=== PATIENT | male | born 1980 | race Caucasian/White ===

== ENCOUNTER 2017-08-16 02:03 | Emergency (ER) | payer SELFPAY ==
[2017-08-16] MEDS ORDERED: PREDNISONE 20 MG TABLET PO ONE (04:00)
--- NOTE | 2017-08-16 04:04 | ER Document Report ---
ED General - General Chief Complaint: Decreased Appetite Stated Complaint: DIZZINESS Time Seen by Provider: 08/16/17 03:46 Notes: Patient is a 29-year-old male that comes emergency department for chief complaint of being sick for 2 weeks with nonstop cough, he states that occasionally when he stands up he feels lightheaded and like he can walk a straight line, he states that occasionally coughs so hard he almost vomits. He reports mild sore throat. He is unsure of fever, states he has been taking a lot of NyQuil. No daily medications, never smoked, no medical history reported. He denies any current symptoms except for persistent cough. TRAVEL OUTSIDE OF THE [place] IN LAST 30 DAYS: No - Related Data Allergies/Adverse Reactions: No Known Allergies Allergy (Unverified 08/16/17 04:24) Past Medical History - General Information source: Patient - Social History Smoking Status: Never Smoker Frequency of alcohol use: None Drug Abuse: None Lives with: Alone Family History: None Surgical Hx: Negative - Immunizations Hx Diphtheria, Pertussis, Tetanus Vaccination: Yes Review of Systems - Review of Systems Constitutional: See HPI EENT: See HPI Cardiovascular: No symptoms reported Respiratory: See HPI Gastrointestinal: See HPI Genitourinary: No symptoms reported Male Genitourinary: No symptoms reported Musculoskeletal: No symptoms reported Skin: No symptoms reported Hematologic/Lymphatic: No symptoms reported Neurological/Psychological: No symptoms reported Physical Exam - Vital signs Vitals: Temp Pulse Resp BP Pulse Ox 98.1 F 84 17 118/84 95 08/16/17 02:18 08/16/17 02:18 08/16/17 02:18 08/16/17 02:18 08/16/17 02:18 - Notes Notes: GENERAL: Alert, interacts well. No acute distress. HEAD: Normocephalic, atraumatic. EYES: Pupils equal, round, and reactive to light. Extraocular movements intact. ENT: Oral mucosa moist, tongue midline. [Nares patent, no nasal septal hematoma , TM's intact.] Mild erythema of the tonsils with mild enlargement of the tonsils. Clear airway. Unremarkable oropharyngeal exam otherwise. NECK: Full range of motion. Supple. Trachea midline. LUNGS: Clear to auscultation bilaterally, no wheezes, rales, or rhonchi. No respiratory distress. Persistent cough. HEART: Regular rate and rhythm. No murmur ABDOMEN: Soft, non-tender. Non-distended. Bowel sounds present in all 4 quadrants. EXTREMITIES: Moves all 4 extremities spontaneously. No edema, normal radial and dorsalis pedis pulses bilaterally. No cyanosis. BACK: no cervical, thoracic, lumbar midline tenderness. No saddle anesthesia, normal distal neurovascular exam. NEUROLOGICAL: Alert and oriented x3. Normal speech. [cranial nerves II through XII grossly intact]. PSYCH: Normal affect, normal mood. SKIN: Warm, dry, normal turgor. No rashes or lesions noted. Course - Re-evaluation Re-evalutation: On entering the room patient sitting up on the bed, playing on his cell phone, he is quite well-appearing other than a almost non-stop nonproductive cough. He stood in the room for me without any difficulty or gait abnormality, neurologically normal. He does have mild tonsillitis in addition to the persistent cough but otherwise his examination is unremarkable. Vital signs unremarkable with no hypoxia, fever, tachycardia, hypotension. CBC unremarkable, chemistry unremarkable, strep throat test is negative, chest x -ray also unremarkable. Evaluation is consistent with bronchitis. No additional concerns noted. Patient will be treated for bronchitis with prednisone, he will be medicated for nonstop cough, he was given Tessalon and he did improve somewhat. Discussed recommendations, expectations, follow-up, and return precautions in detail. Patient states satisfaction and agreement. - Vital Signs Vital signs: Temp Pulse Resp BP Pulse Ox 98.8 F 84 16 113/76 95 08/16/17 05:47 08/16/17 05:47 08/16/17 05:47 08/16/17 05:47 08/16/17 05:47 - Laboratory Result Diagrams: 08/16/17 04:15 08/16/17 04:15 Laboratory results interpreted by me: 08/16/17 08/16/17 04:15 04:15 Plt Count 131 L BUN 22 H Discharge - Discharge Clinical Impression: Cough Upper respiratory infection Qualifiers: URI type: unspecified URI Qualified Code(s): J06.9 - Acute upper respiratory infection, unspecified Condition: Stable Disposition: HOME, SELF-CARE Additional Instructions: Your evaluation and workup are consistent with bronchitis. This is usually viral, appears to be viral. This will eventually resolve, but this does require time. Take the prednisone as prescribed (next dose is tomorrow), watch your diet while on this. Take Tessalon for cough during the day if needed, take the syrup for cough at night only if needed. Follow-up with primary care. Return if you worsen including difficulty breathing, spiking fever, or any other concerning or worsening symptoms. Prescriptions: Hydrocodone Bit/Homatropine [Hycodan Syrup 5-1.5 mg/5 ml Ud Cup] 5 ml PO Q4HP PRN #120 ml PRN Reason: Benzonatate [Tessalon Perle 100 mg Capsule] 100 mg PO Q8HP PRN #20 cap PRN Reason: Prednisone 60 mg PO DAILY #12 tablet
[2017-08-16 04:31] LABS: ABSOLUTE EOSINOPHILS # (AUTO) 0.1 10^3/uL (0.0-0.6); ABSOLUTE LYMPHOCYTES (AUTO) 1.5 10^3/uL (0.5-4.7); ABSOLUTE NEUT (AUTO) 6.8 10^3/uL (1.7-8.2); BASOPHILS % (AUTO) 0.4 % (0-2); EOSINOPHILS % (AUTO) 0.9 % (0-6); MEAN CORPUSCULAR HEMOGLOBIN 30.5 pg (27.0-33.4); MEAN CORPUSCULAR HGB CONC 35.7 g/dL (32.0-36.0); MEAN CORPUSCULAR VOLUME 85 fl (80-97); MONOCYTES % (AUTO) 10.3 % (3-13); PLATELET COUNT 131 10^3/uL (150-450); RED BLOOD COUNT 4.92 10^6/uL (4.35-5.55); RED CELL DISTRIBUTION WIDTH 12.7 % (11.5-14.0); SEGMENTED NEUTROPHILS % (AUTO) 72.4 % (42-78); TOTAL CELLS COUNTED % (AUTO) 100 %; WHITE BLOOD COUNT 9.4 10^3/uL (4.0-10.5)
--- NOTE | 2017-08-16 04:35 | RADIOLOGY REPORT (SQ) ---
EXAM DESCRIPTION: XR CHEST 2 VIEWS COMPLETED DATE/TME: 08/16/2017 03:59 CLINICAL HISTORY: 37 years Male, non-stop cough for 2 weeks COMPARISON: None. FINDINGS: Adequate lung volume, clear parenchyma, normal cardiac silhouette, and intact bony thorax. IMPRESSION: No acute cardiopulmonary findings.
[2017-08-16 04:44] LABS: ANION GAP 15 (5-19); BLOOD UREA NITROGEN 22 mg/dL (7-20); CALCIUM 8.5 mg/dL (8.4-10.2); CARBON DIOXIDE 24 mmol/L (22-30); CHLORIDE 101 mmol/L (98-107); GLUCOSE 101 mg/dL (75-110); POTASSIUM 3.8 mmol/L (3.6-5.0)
[2017-08-16 05:48] VITALS: BP 113/76
== END 2017-08-16 05:46 | disposition home or self-care (01) ==
LOC: ER 02:03
DX: J06.9 Acute upper respiratory infection, unspecified (principal); R05 Cough; J03.90 Acute tonsillitis, unspecified; R42 Dizziness and giddiness
CPT/HCPCS: 99284; 36415; 87070; 87880; 85025; 80048; 71046; J7512